=== PATIENT | male | born 1975 | race Caucasian/White ===

== ENCOUNTER 2016-11-28 17:43 | Emergency (ER) | payer OTHER ==
[~2016-11-28] VITALS: Ht 160 cm; Wt 71.9 kg
[~2016-11-28 17:43] MED LIST: BUPR-83 PO; BUSP-8 PO; CPR500 PO; PANT1TAB48 PO
[2016-11-28 17:57] VITALS: Ht 160 cm; Wt 71.9 kg
[2016-11-28] MEDS ORDERED: CIPROFLOXACIN HCL 0.3% OP SOLN 2.5 ML BTL OP ONE (19:15)
--- NOTE | 2016-11-28 19:16 | EMERGENCY ROOM VISIT NOTE ---
ED Visit Note First contact with patient: 18:15 CHIEF COMPLAINT: Eye pain HISTORY OF PRESENT ILLNESS: This 41-year-old male patient presents to the emergency department ambulatory complaining of pain in the right eye which began 4 days ago. The patient states that he woke up he noticed that his eye was slightly red and painful to touch. He initially thought that he had pinkeye and started using warm compresses and [id number] drops. He does state that he has dry eyes I baseline. He wears contact lenses. He has been wearing his glasses since his symptoms started. He reports pressure in the eye. He states that his vision is slightly hazy, but his vision has not been decreased overall. He does complain of photosensitivity. The patient rates the pain as 4.5/10. He denies any previous eye issues or eye surgeries. [facility] and sent here for further evaluation due to fluorescein uptake. REVIEW OF SYSTEMS: A 6 system review of systems was completed with positives and pertinent negatives listed in the HPI. ALLERGIES: No known drug allergies MEDICATIONS: See med list PMH: No pertinent past medical history. SOCIAL HISTORY: The patient lives locally with family. Nonsmoker, denies alcohol use. PHYSICAL EXAM: Vital Signs: Reviewed Nurse's notes, vital signs stable. Visual acuity 20/25 right eye, 20/20 left eye with correction. GENERAL: This is a 41-year-old male, in no acute distress, but who is uncomfortable from the eye problem. Well-developed well-nourished. EYES: The pupils are equal round and reactive to light and accommodation. EOMs are full and without pain. There is discharge of clear tears from the right eye which is mildly injected. There is no foreign body visible under the eyelid even after lid eversion. Funduscopic exam reveals no hemorrhages, papilledema, or other abnormalities. No foreign body was seen embedded in the cornea under slit lamp exam. The cornea was clear and no hyphema was seen. Mild, diffuse fluorescein uptake was noted over the cornea. No evidence of corneal ulcer. No dendritic lesions. Intraocular pressures measured 11 mmHg bilaterally. EMERGENCY DEPARTMENT COURSE: I examined the patient. Intraocular pressures were equal and within normal limits. Slit-lamp examination was performed as noted above and did show mild uptake over the cornea. The patient likely has a corneal abrasion secondary to contact lens use. He was given a prescription of ciprofloxacin drops and instructed on use. He will follow up with his own filling layer up or an hot mill roller in 2 days for a recheck. He was instructed to return here or follow-up sooner for any vision changes, worsening pain or new /concerning symptoms. He verbalized understanding of my assessment and treatment plan. The patient was discharged home in good condition. Blood Pressure Screening: Patient was found to have a slightly elevated blood pressure due to circumstances. I do not believe that the patient requires hypertension monitoring. Medication reconciliation: I attest that I have personally reviewed the patient 's current medication list. DIAGNOSIS: Corneal abrasion of the right eye Current/Historical Medications Scheduled Bupropion (Wellbutrin), 100 MG PO BID Buspirone Hcl (Buspirone Hcl), 10 MG PO BID Ciprofloxacin (Ciprofloxacin HCl), 500 MG PO BID Fluticasone Propionate (Nasal) (Flonase Allergy Relief), 2 SPRAYS LADY DAILY Pantoprazole (Protonix), 40 MG PO DAILY Topiramate (Topamax ), 25 MG PO BID Scheduled PRN Diclofenac Sodium (Topical) (Diclofenac Sodium), 1 APPLN TD QID PRN for Pain Hydroxyzine Pamoate (Vistaril), 25 MG PO HS PRN for Insomnia Tizanidine (Zanaflex ), 4 MG PO TID PRN for SPASMS Allergies Coded Allergies: No Known Allergies (Unverified , 01/08/14) Vital Signs Date Time Temp Pulse Resp B/P (MAP) Pulse Ox O2 Delivery O2 Flow Rate FiO2 11/28/16 19:21 37.1 90 16 148/98 97 Room Air 11/28/16 17:57 Room Air Medications Administered Medications (Trade) Dose Ordered Sig/Bree Route Start Time Stop Time Status Last Admin Dose Admin Ciprofloxacin HCl (Ciprofloxacin 0.3% Op Soln) 2 drops Q4H ONCE OP 11/28/16 19:15 11/28/16 19:16 DC 11/28/16 19:15 2 DROPS Departure Information Impression Primary Impression: Corneal abrasion due to contact lens Dispostion Home / Self-Care Condition GOOD Referrals Davon Galeano (PCP) Gusatvo Chinchilla M.D. Patient Instructions My [facility] Additional Instructions You have been treated in the Emergency Department today for your Corneal Abrasion. You have been prescribed Ciloxan eye drops. This is an antibiotic which will help to prevent an infection from developing in your affected eye. You should use 2 drops in the affected up to 6 times daily until your symptoms have completely resolved. For pain control, you can use the following [id number] medicines (if >12 yo): - Regular strength (325mg/tab) Tylenol (acetaminophen) 2 tabs every 4-6 hours as needed. Do not exceed 12 tablets in a 24 hour period. Avoid taking more than 4 grams (4000 mg) of Tylenol per day. This includes any other sources of acetaminophen you may take on a regular basis. - Regular strength (200 mg/tab) Advil (ibuprofen) 1-2 tabs every 4-6 hours as needed. Do not exceed a dose of 3200 mg per day. You should relax in a quiet, dark place for the rest of the day. You should wear sunglasses while outside for the next few days until your eyes are not as sensitive to the light. You should schedule a follow-up appointment in 2-3 days with your Primary Care Provider or established Eye Doctor (Shipping Lead) for further evaluation and treatment of your Corneal Abrasion. Return to the Emergency Department if your current symptoms worsen despite treatment course outlined above, or if you develop any of the following symptoms : intractable pain, visual disturbances, loss of vision, increased redness, swelling, drainage, or if you develop a fever. Problem Qualifiers Primary Impression: Corneal abrasion due to contact lens Laterality: right Qualified Codes: H18.821 - Corneal disorder due to contact lens, right eye
[2016-11-28 19:21] VITALS: BP 148/98; PULSE 90; TEMP 37.1; O2SAT 97
[2016-11-28] MEDS ORDERED: HYDR25CA PO (19:36)
[2016-11-28] MEDS ORDERED: [UNRECOGNIZED DRUG - CODE] TD (19:39)
[2016-11-28] MEDS ORDERED: ZNF4 PO (19:41)
[2016-11-28] MEDS ORDERED: TOPI25TA99 PO (19:42)
[2016-11-28] MEDS ORDERED: FLUT0.15 NAE (19:43)
[2016-11-28] MEDS ORDERED: GABA-113 PO (19:45)
[2016-11-28] MEDS ORDERED: BUPR200T2 PO (19:46)
== END 2016-11-28 19:26 | disposition home or self-care (01) ==
LOC: C.EDB 17:45 → C.EDD 19:26
DX: S05.01XA Injury of conjunctiva and corneal abrasion without foreign body, right eye, initial encounter (principal); X58.XXXA Exposure to other specified factors, initial encounter; Z79.899 Other long term (current) drug therapy